=== PATIENT | female | born 1965 | race African-American/Black ===

== ENCOUNTER 2018-05-24 23:27 | Emergency (ER) | payer OTHER ==
[2018-05-25 00:28] LABS: Hematocrit 40 % (35-47); Mean Corpuscular HGB Conc 33 g/dl (31-36); Mean Corpuscular Hemoglobin 25 pg (27-31); Mean Corpuscular Volume 77 fL (80-97); Mean Platelet Volume 8.6 um3 (7.4-10.4); Platelet Count 267 10^3/ul (150-450); Red Blood Count 5.14 10^6/ul (4.00-5.40); Red Cell Distribution Width 15 % (10.5-15); White Blood Count 5.2 10^3/ul (3.5-10.8)
[2018-05-25 00:31] LABS: INR 0.84 (0.77-1.02)
[2018-05-25 00:44] LABS: EGFR Non-African American 81.8 (>60)
[2018-05-25 00:59] LABS: ABS Basophils 0.1 10^3/ul (0-0.2); ABS Eosinophils 0.3 10^3/ul (0-0.6); ABS Lymphocytes 2.2 10^3/ul (1.0-4.8); ABS Monocytes 0.4 10^3/ul (0-0.8); ABS Neutrophils 2.1 10^3/ul (1.5-7.7); ABS Nucleated RBC 0 10^3/ul; Eosinophil % 5.6 % (0-6); Lymphocyte % 43.4 % (25-47); Nucleated Red Blood Cells % 0.2
--- NOTE | 2018-05-25 02:49 | ED ---
HPI Cardiac - HPI Summary HPI Summary: A 52 y/o female presents to the ED c/o high blood pressure. As per triage, "Patient states elevated BP of 220/100 at home. Heart feeling uneasy, heart palpitations". According to the patient, she went to her current PCP who noted her blood pressure was high. Due to the high blood pressure, she was prescribed Nifedipine ER (60 mg, prescribed on 05/16/2018). In the ED room, the patient has a pulse of 81 BPM, O2 saturation of 98% and a blood pressure of 183/96. She stated that she took her prescribed medication, however, it made her really dizzy and generally sick. PShe decided not to the take the medication again and made another appointment with her PCP. Additionally, she noted at home her blood pressure was around 210, but she is not confident in what she saw because she is not sure if her machine is working based on the numbers she is seeing at the ED. She stated that her blood pressure went really high today reaching around 200 at 2130 (05/24/2018) after a stressful talker. She comes into the ED today because she wanted it to get it checked out. Pt denies any headache or current dizziness. Daughter is present in the ED room. PCP is Dr. Brice. She noted that she will go back to Dr. Brice for follow up, but she doesn' t want to keep him as a PCP. After follow up, she plans no not going back. PMHx of Caesarean Section. FHx of CVA and HBP, no DM. It was noted that the patient was on iron for anemia and has a low-blood count. Pt is vegetarian. No allergies to medications. - History of Current Complaint Chief Complaint: EDDysrhythmPalp Stated Complaint: HIGH BP Time Seen by Provider: 05/24/18 23:50 Hx Obtained From: Patient Onset/Duration: Started Hours Ago Timing: Intermittent Current Severity: None Pain Intensity: 0 Pain Scale Used: 0-10 Numeric Alleviating Factor(s): Nothing Associated Signs and Symptoms: Positive: Other: - HBP. Negative: Headaches, Dizziness - Allergy/Home Medications Allergies/Adverse Reactions: Allergies Allergy/AdvReac Type Severity Reaction Status Date / Time No Known Allergies Allergy Verified 06/26/16 07:29 Home Medications: Home Medications NIFEdipine [Nifedipine ER] 60 mg PO DAILY 05/25/18 [History Confirmed 05/25/18] PMH/Surg Hx/FS Hx/Imm Hx Endocrine/Hematology History: Denies: Hx Anticoagulant Therapy, Hx Diabetes, Hx Thyroid Disease Cardiovascular History: Denies: Hx Hypertension Respiratory History: Denies: Hx Asthma, Hx Chronic Obstructive Pulmonary Disease (COPD) GI History: Denies: Hx Ulcer History: Reports: Other Problems/Disorders - gallbladder resection - Surgical History Surgery Procedure, Year, and Place: gallbladder, c section - Immunization History Date of Tetanus Vaccine: unk Date of Influenza Vaccine: none Infectious Disease History: No Infectious Disease History: Denies: Hx Hepatitis, Hx Human Immunodeficiency Virus (HIV), Traveled Outside the [place] in Last 30 Days - Social History Alcohol Use: None Hx Substance Use: No Substance Use Type: Reports: None Hx Tobacco Use: No Smoking Status (MU): Never Smoked Tobacco Have You Smoked in the Last Year: No Review of Systems Negative: Fever Positive: Other - POSITIVE: HBP Neurological: Other - NEGATIVE: Dizziness Negative: Headache All Other Systems Reviewed And Are Negative: Yes Physical Exam - Summary Physical Exam Summary: Appearance: Well-appearing, moderate pain distress, well-nourished Skin:Warm, color reflects adequate perfusion, dry Head:Normal Head/Face inspection, atraumatic Eyes: Conjunctiva clear ENT:Normal inspection Neck:Supple, no nodes, no JVD Respiratory: Lungs clear, normal breath sounds, no respiratory distress Cardio: RRR, No murmur, pulses normal, brisk capillary refill Abdomen: Soft, nontender Bowel sounds: Present Musculoskeletal: Strength Intact/ROM intact, no calf tenderness, no edema. Psychological: Normal Neuro: Alert, muscle tone normal, no focal deficit Triage Information Reviewed: Yes Vital Signs On Initial Exam: Initial Vitals Temp Pulse Resp BP Pulse Ox 97.4 F 86 20 169/97 100 05/24/18 23:29 05/24/18 23:29 05/24/18 23:29 05/24/18 23:29 05/24/18 23:29 Vital Signs Reviewed: Yes Diagnostics - Vital Signs Vital Signs Temp Pulse Resp BP Pulse Ox 05/25/18 02:23 81 187/96 99 05/25/18 02:00 78 99 05/25/18 01:53 76 183/97 100 05/25/18 01:41 75 181/98 100 05/25/18 01:31 76 191/96 100 05/25/18 01:00 11 05/25/18 00:53 20 215/92 05/25/18 00:51 17 203/93 05/25/18 00:26 19 186/92 05/25/18 00:22 90 11 99 05/24/18 23:29 97.4 F 86 20 169/97 100 - Laboratory Lab Results: Lab Results 05/25/18 05/25/18 05/25/18 Range/Units 00:10 00:10 00:10 WBC 5.2 (3.5-10.8) 10^3/ul RBC 5.14 (4.00-5.40) 10^6/ul Hgb 13.0 (12.0-16.0) g/dl Hct 40 (35-47) % MCV 77 L (80-97) fL MCH 25 L (27-31) pg MCHC 33 (31-36) g/dl RDW 15 (10.5-15) % Plt Count 267 (150-450) 10^3/ul MPV 8.6 (7.4-10.4) um3 Neut % (Auto) 41.4 (38-83) % Lymph % (Auto) 43.4 (25-47) % Norman % (Auto) 8.5 H (0-7) % Eos % (Auto) 5.6 (0-6) % Baso % (Auto) 1.1 (0-2) % Absolute Neuts (auto) 2.1 (1.5-7.7) 10^3/ul Absolute Lymphs (auto) 2.2 (1.0-4.8) 10^3/ul Absolute Monos (auto) 0.4 (0-0.8) 10^3/ul Absolute Eos (auto) 0.3 (0-0.6) 10^3/ul Absolute Basos (auto) 0.1 (0-0.2) 10^3/ul Absolute Nucleated RBC 0 10^3/ul Nucleated RBC % 0.2 Large Platelets Present INR (Anticoag Therapy) (0.77-1.02) D-Dimer, Quantitative (Less Than 230) ng/mL Sodium 139 (135-145) mmol/L Potassium 3.9 (3.5-5.0) mmol/L Chloride 102 (101-111) mmol/L Carbon Dioxide 30 (22-32) mmol/L Anion Gap 7 (2-11) mmol/L BUN 11 (6-24) mg/dL Creatinine 0.74 (0.51-0.95) mg/dL Est GFR ( Amer) 99.0 (>60) Est GFR (Non-Af Amer) 81.8 (>60) BUN/Creatinine Ratio 14.9 (8-20) Glucose 165 H (70-100) mg/dL Lactic Acid 1.2 (0.5-2.0) mmol/L Calcium 9.6 (8.6-10.3) mg/dL Magnesium 2.1 (1.9-2.7) mg/dL Total Bilirubin 0.40 (0.2-1.0) mg/dL AST 14 (13-39) U/L ALT 13 (7-52) U/L Alkaline Phosphatase 98 (34-104) U/L Total Creatine Kinase 54 (10-223) U/L CK-MB (CK-2) 1.5 (0.6-6.3) ng/mL Troponin I 0.01 (<0.04) ng/mL B-Natriuretic Peptide ( - 100) pg/mL Total Protein 7.4 (6.4-8.9) g/dL Albumin 4.0 (3.2-5.2) g/dL Globulin 3.4 (2-4) g/dL Albumin/Globulin Ratio 1.2 (1-3) 18 05/25/18 Range/Units 00:10 00:10 WBC (3.5-10.8) 10^3/ul RBC (4.00-5.40) 10^6/ul Hgb (12.0-16.0) g/dl Hct (35-47) % MCV (80-97) fL MCH (27-31) pg MCHC (31-36) g/dl RDW (10.5-15) % Plt Count (150-450) 10^3/ul MPV (7.4-10.4) um3 Neut % (Auto) (38-83) % Lymph % (Auto) (25-47) % Norman % (Auto) (0-7) % Eos % (Auto) (0-6) % Baso % (Auto) (0-2) % Absolute Neuts (auto) (1.5-7.7) 10^3/ul Absolute Lymphs (auto) (1.0-4.8) 10^3/ul Absolute Monos (auto) (0-0.8) 10^3/ul Absolute Eos (auto) (0-0.6) 10^3/ul Absolute Basos (auto) (0-0.2) 10^3/ul Absolute Nucleated RBC 10^3/ul Nucleated RBC % Large Platelets INR (Anticoag Therapy) 0.84 (0.77-1.02) D-Dimer, Quantitative < 200 (Less Than 230) ng/mL Sodium (135-145) mmol/L Potassium (3.5-5.0) mmol/L Chloride (101-111) mmol/L Carbon Dioxide (22-32) mmol/L Anion Gap (2-11) mmol/L BUN (6-24) mg/dL Creatinine (0.51-0.95) mg/dL Est GFR ( Amer) (>60) Est GFR (Non-Af Amer) (>60) BUN/Creatinine Ratio (8-20) Glucose (70-100) mg/dL Lactic Acid (0.5-2.0) mmol/L Calcium (8.6-10.3) mg/dL Magnesium (1.9-2.7) mg/dL Total Bilirubin (0.2-1.0) mg/dL AST (13-39) U/L ALT (7-52) U/L Alkaline Phosphatase (34-104) U/L Total Creatine Kinase (10-223) U/L CK-MB (CK-2) (0.6-6.3) ng/mL Troponin I (<0.04) ng/mL B-Natriuretic Peptide 18 ( - 100) pg/mL Total Protein (6.4-8.9) g/dL Albumin (3.2-5.2) g/dL Globulin (2-4) g/dL Albumin/Globulin Ratio (1-3) Result Diagrams: 05/25/18 00:10 05/25/18 00:10 Lab Statement: Any lab studies that have been ordered have been reviewed, and results considered in the medical decision making process. - Radiology CXR Radiology Interpretation Completed By: ED Physician - MATT - EKG 2329 Cardiac Rate: NL - 81 BPM EKG Rhythm: Sinus Rhythm EKG Interpretation: nl ALICIA CT, nl QTc, no acute changes. EKG Comparison: Other - 09/01/2016. Now with Q-wave in III. Re-Evaluation - Re-Evaluation First Eval Re-Evaluation Time: 04:45 Comment: Last foot and drink was 1600 on 05/24/2018 Disposition - Course Course Of Treatment: A 52 y/o female presents to the ED c/o high blood pressure. A EKG revealed a rate of 81 BPM, nl ALICIA CT, nl QTc, no acute changes. A CXR revealed NAP. In the ED course, the patient recieved Prinivil. Pt will be discharged with a diagnosis hypertensive emergency and HTN in poor control. Pt is to follow up with PCP in 2-3 days. Pt is agreeable with this plan. - Diagnoses Provider Diagnoses: Hypertension, poor control, Hypertensive emergency Discharge - Sign-Out/Discharge Documenting (check all that apply): Patient Departure - DISCHARGE - Discharge Plan Condition: Stable Disposition: HOME Prescriptions: Lisinopril TAB* [Prinivil TAB 10 MG*] 10 mg PO DAILY #30 tab Patient Education Materials: Hypertension (ED) Referrals: [facility] [place] [facility] REFERRAL [Outside] - As Soon As Possible Dereje Brice MD [Medical Doctor] - 2 Days Additional Instructions: We have given you a copy or your labs. There is no sign of a heart attack or stroke based on your testing done today. We gave you lisinopril 10mg orally at 0300 and your blood pressure improved. We have prescribed this for you. You may stop the nifedipine ER 60mg. Return to the ER if any new or worsening symptoms.
[2018-05-25] MEDS ORDERED: Lisinopril TAB* 10 MG PO ONE (03:01)
[2018-05-25 04:25] VITALS: BP 156/87
--- NOTE | 2018-05-25 09:06 | RAD ---
INDICATION: Palpitations COMPARISON: None TECHNIQUE: An AP portable view obtained at 0112 hours is submitted. FINDINGS: Bones/Soft Tissues: There are no acute bony findings. Cardiomediastinal: The cardiomediastinal silhouette is normal. Lungs: There are no infiltrates. Pleura: There are no pleural effusions. Other: None IMPRESSION: NO ACTIVE DISEASE.
== END 2018-05-25 04:28 | disposition home or self-care (01) ==
LOC: ED 23:27
DX: I10 Essential (primary) hypertension (principal); I16.1 Hypertensive emergency
CPT/HCPCS: 36415; 71045; 80053; 82550; 82553; 83605; 83735; 83880; 84484; 85025; 85379; 85610; 93005; 99283; A9270-GY

== ENCOUNTER 2018-12-01 19:38 | Emergency (ER) | payer OTHER ==
--- NOTE | 2018-12-01 20:55 | UC ---
Hypertension HPI - History of Current Complaint Chief Complaint: UCGeneralIllness Stated Complaint: HIGH BLOOD PRESSURE Time Seen by Provider: 12/01/18 20:47 Hx Obtained From: Patient - Allergies/Home Medications Allergies/Adverse Reactions: Allergies Allergy/AdvReac Type Severity Reaction Status Date / Time No Known Allergies Allergy Verified 06/26/16 07:29 Home Medications: Home Medications Chlorthalidone TAB* [Hygroton TAB*] 1 tab PO DAILY 12/01/18 [History Confirmed 12/01/18] PMH/Surg Hx/FS Hx/Imm Hx Endocrine History: Diabetes Cardiovascular History: Hypertension Other History Of: Negative For: Anticoagulant Therapy - Surgical History Surgical History: Yes Surgery Procedure, Year, and Place: gallbladder, c section - Family History Known Family History: Positive: Unknown, Hypertension, Other - CVA, no DM - Social History Occupation: Unemployed Lives: With Family Alcohol Use: None Substance Use Type: None Smoking Status (MU): Never Smoked Tobacco Have You Smoked in the Last Year: No - Immunization History Hx Tetanus, Diphtheria Vaccination: Yes Vaccination Up to Date: Yes Review of Systems All Other Systems Reviewed And Are Negative: Yes Constitutional: Positive: Negative Eyes: Negative: Blurred Vision, Diplopia, Photophobia Respiratory: Negative: Shortness Of Breath, Cough Cardiovascular: Negative: Palpitations, Chest Pain Gastrointestinal: Negative: Abdominal Pain, Vomiting, Diarrhea, Nausea Genitourinary: Positive: Negative Musculoskeletal: Positive: Negative Neurological: Negative: Headache, Weakness, Paresthesia, Numbness Is Patient Immunocompromised?: No Physical Exam - Summary Physical Exam Summary: GENERAL APPEARANCE: Well developed, well nourished, alert and cooperative, and appears to be in no acute distress. CARDIAC: Normal S1 and S2. No S3, S4 or murmurs. Rhythm is regular. There is no peripheral edema, cyanosis or pallor. Extremities are warm and well perfused. Capillary refill is less than 2 seconds. Peripheral pulses intact. LUNGS: Clear to auscultation without rales, rhonchi, wheezing or diminished breath sounds. ABDOMEN: Positive bowel sounds. Soft, nondistended, nontender. No guarding or rebound. No masses or hepatosplenomegally. MUSKULOSKELETAL: ROM intact to all extremities. No joint erythema or tenderness. Normal muscular development. Normal gait. NEUROLOGICAL: CN II-XII intact. Strength and sensation symmetric and intact throughout. Reflexes 2+ throughout. Cerebellar testing normal. SKIN: Skin normal color, texture and turgor with no lesions or eruptions. Triage Information Reviewed: Yes Vital Signs: Initial Vital Signs Temp 97.2 F 12/01/18 19:46 Pulse 84 12/01/18 19:46 Resp 18 12/01/18 19:46 BP 195/93 12/01/18 19:46 Pulse Ox 100 12/01/18 19:46 Vital Signs Reviewed: Yes Hypertension Course/Dx - Course Course Of Treatment: 53 year old female presents reporting elevated blood pressure readings at home this evening. States she took her BP twice tonight around 17:00 about 15 minutes apart and got readings of 158/102 and 164/98 respectively. Reports compliance with her medication regimen. States she was recently diagnosed with type 2 DM but has not been started on medication at this time. Denies headache, visual disturbances, facial droop, slurred or difficulty speaking, confusion, extremity numbness, tingling, or weakness, chest pain, palpatations, shortness of breath, or lower extremity edema. Afebrile. Patient was noted to be hypertensive on two separate occasions 1 hour apart. Vital signs were otherwise stable. She remained assymptomatic during the course of her stay therefore I feel we can attempt to lower her blood pressure slowly over a matter of days. She is to take an extra dose of her lisinopril tonight and recheck blood pressure tomorrow then once a day and keep a record. She is to call her PCP first thing Tuesday morning for an urgent follow up and recheck of her BP. Warning symptoms were reviewed with the patient. She verbalizes understanding and agrees with POC. - Differential Dx/Diagnosis Differential Diagnosis/HQI PQRI: Hypertension, Hypertensive Urgency Provider Diagnosis: Hypertensive urgency Discharge - Sign-Out/Discharge Documenting (check all that apply): Patient Departure All imaging exams completed and their final reports reviewed: No Studies - Discharge Plan Condition: Stable Disposition: HOME Patient Education Materials: Low-Sodium Diet (ED), Hypertension (ED) Referrals: Han Kee MD [Primary Care Provider] - 3 Days Additional Instructions: Your blood pressure was elevated in the clinic today however since you weren't having any other symptoms we can work on lowering your blood pressure slowly over the next several days. Take a dose of your lisinopril 10 mg 1 tablet tonight then resume your normal routine tomorrow. Call first thing Tuesday morning and make an appointment to follow up with your primary care provider within the next 3-5 days to have your blood pressure rechecked. Seek immediate medical attention in the emergency room if you have a sudden severe headache, visual disturbances, slurred or difficulty speaking, weakness, numbness, or tingling in your arms or legs especially if on one side of your body, chest pain, feel as if your heart is racing or skipping beats, feel short of breath, or any concerning symptoms. - Billing Disposition and Condition Condition: STABLE Disposition: Home
[2018-12-01 20:56] VITALS: BP 170/100
== END 2018-12-01 21:19 | disposition home or self-care (01) ==
LOC: UCEAST 19:38
DX: I16.0 Hypertensive urgency (principal); E11.9 Type 2 diabetes mellitus without complications
CPT/HCPCS: 99211; G0463

== ENCOUNTER 2020-02-25 00:01 | Emergency (ER) | payer MEDICAID ==
[2020-02-25 00:13] VITALS: BP 184/91
== END 2020-02-25 00:15 | disposition left against medical advice (07) ==
LOC: ED 00:01
DX: R03.0 Elevated blood-pressure reading, without diagnosis of hypertension (principal); Z53.21 Procedure and treatment not carried out due to patient leaving prior to being seen by health care provider
CPT/HCPCS: 99282